=== PATIENT | male | born 1965 | race American Indian/Alaskan Native ===

== ENCOUNTER 2016-04-07 00:48 | Emergency (ER) | payer MEDICARE ==
[2016-04-07 01:04] VITALS: BP 129/88
[2016-04-07 01:47] LABS: Basophils % (Auto) 0.6 % (0.0-1.8); Eosinophils % (Auto) 1.7 % (0.0-4.3); Hemoglobin 13.6 gm/dl (11.8-15.2); Mean Corpuscular HGB Conc 33 % (32-34); Mean Corpuscular Hemoglobin 29 pg (28-32); Mean Corpuscular Volume 86 fl (84-94); Platelet Count 151 K/mm3 (140-440); Red Blood Count 4.75 M/mm3 (3.65-5.03); White Blood Count 5.4 K/mm3 (4.5-11.0)
[2016-04-07 03:01] LABS: BUN/Creatinine Ratio 16.25; Blood Urea Nitrogen 13 mg/dL (9-20); Calcium 9.6 mg/dL (8.4-10.2); Carbon Dioxide 23 mmol/L (22-30); Glucose 90 mg/dL (75-100)
[2016-04-07 03:02] LABS: Chloride 100.4 mmol/L (98-107); Potassium 3.7 mmol/L (3.6-5.0); Sodium 142 mmol/L (137-145)
[2016-04-07 03:03] LABS: Anion Gap 22 mmol/L
--- NOTE | 2016-04-07 09:50 | XRay Report ---
ROUTINE CHEST, TWO VIEWS: HISTORY: Shortness of breath. The trachea, heart, mediastinal contour, lung vera and bony thorax are unremarkable. IMPRESSION: Unremarkable chest x-ray.
--- NOTE | 2016-04-08 14:04 | ED Elopement Review ---
ED Pt Elopement review - Results review Lab results: Laboratory Tests 04/07/16 04/07/16 01:34 01:34 WBC 5.4 RBC 4.75 Hgb 13.6 Hct 41.0 MCV 86 MCH 29 MCHC 33 RDW 14.0 Plt Count 151 Lymph % (Auto) 34.7 [place] % (Auto) 9.7 H Eos % (Auto) 1.7 Baso % (Auto) 0.6 Lymph # 1.9 [place] # 0.5 Eos # 0.1 Baso # 0.0 Seg Neutrophils % 53.3 Seg Neutrophils # 2.9 Sodium 142 Potassium 3.7 Chloride 100.4 Carbon Dioxide 23 Anion Gap 22 BUN 13 Creatinine 0.8 Estimated GFR > 60 BUN/Creatinine Ratio 16.25 Glucose 90 Calcium 9.6 Troponin T < 0.010 - Call Back decision Pt Call Back Decision: No action required
== END 2016-04-07 09:07 | disposition left against medical advice (07) ==
LOC: ED 00:48
DX: R07.9 Chest pain, unspecified (principal); R06.00 Dyspnea, unspecified; R05 Cough; Z53.21 Procedure and treatment not carried out due to patient leaving prior to being seen by health care provider
CPT/HCPCS: 36415; 71020; 80048; 84484; 85025; 93005; 93010